=== PATIENT | male | born 1945 | race Caucasian/White ===

== ENCOUNTER 2024-05-18 11:25 | Outpatient (OUT) | payer MEDICARE, SELFPAY ==
--- NOTE | 2024-05-18 11:32 | XR_ITS ---
The [address] [address] Patient Name: WHITNEY REYES MRN: [id number] date: 1945 Sex: M Assigned Patient Location: [facility] Current Patient Location: Accession/Order Number: [id number] Exam Date: 05/18/2024 11:50 Report Date: 05/19/2024 13:21 At the request of: NANO FINK Procedure: XR lumbar spine 2-3V EXAMINATION: XR lumbar spine 2-3V HISTORY: Aftercare Following Surgery Z47.99 COMPARISON: 11/02/2023 FINDINGS: BONES: Normal alignment with no acute fracture or spondylolisthesis. Posterior decompression bilateral transpedicular fusion L2-S1. No mechanical failure. Bone graft placement. Moderate degenerative spondylosis and facet osteophytes arthropathy DISC SPACES: Multilevel narrowing most significant at L5-S1 PARASPINOUS: Negative. No paraspinous abnormality is seen. OTHER: Vascular calcifications XR/XR lumbar spine 2-3V IMPRESSION: Stable lumbosacral fusion with no mechanical failure Electronically authenticated by: NAZIA HANNA Date: 05/19/2024 13:21
== END 2024-05-18 11:26 | disposition home or self-care (01) ==
LOC: RAD 11:25
PROVIDERS: Visit Provider Orthopaedic Surgery Orthopaedic Surgery of the Spine
DX: Z47.89 Encounter for other orthopedic aftercare (principal); M43.26 Fusion of spine, lumbar region
CPT/HCPCS: 72100